=== PATIENT | female | born 1945 | race Caucasian/White ===

== ENCOUNTER 2020-04-23 09:32 | Emergency (ER) | payer OTHER, MEDICAID ==
[~2020-04-23] VITALS: Ht 154.9 cm; Wt 70.3 kg
[2020-04-23 09:40] VITALS: BP_SYST 162
--- NOTE | 2020-04-23 09:40 | NUR ---
Patient to ER bed 7 to gown for evaluation. Side rails up.
--- NOTE | 2020-04-23 09:42 | NUR ---
Pt came to ER for L eye redness and pain that began yesterday. Pt states she has L head numbness as well, resting in gurney, BP elevated 162/107, no other complaints at this tme.
[2020-04-23] MEDS ORDERED: cloNIDine HCL 0.1 MG TABLET PO ONE (09:45)
--- NOTE | 2020-04-23 09:45 | NUR ---
NANCY Navas at bedside examining patient.
--- NOTE | 2020-04-23 09:55 | NUR ---
Administered PO clonidine and visual acuity test at this time
[2020-04-23 10:28] VITALS: BP_SYST 143
--- NOTE | 2020-04-23 10:32 | NUR ---
Patient given written and verbal discharge instructions and verbalizes understanding. ER MD discussed with patient the results and treatment provided. Patient in stable condition. ID arm band removed. Rx of hydrochlorothiazide given. Patient educated on pain management and to follow up with PMD. Pain Scale 2. Opportunity for questions provided and answered. Medication side effect fact sheet provided.
--- NOTE | 2020-04-23 10:40 | NUR ---
Instructed patient to go to eye doctor for full exam, per
== END 2020-04-23 10:28 | disposition home or self-care (01) ==
LOC: SED 09:32
DX: H11.89 Other specified disorders of conjunctiva (principal); I10 Essential (primary) hypertension; E78.00 Pure hypercholesterolemia, unspecified; Z88.6 Allergy status to analgesic agent
CPT/HCPCS: 70450-TC; 99284

== ENCOUNTER 2020-05-22 06:00 | Day surgery (SDC) | payer OTHER, MEDICAID, SELFPAY ==
[~2020-05-22] VITALS: Ht 154.9 cm; Wt 73.5 kg
[2020-05-22] MEDS ORDERED: ONDANSETRON HCL 4 MG/2 ML VIAL IVP PRN ×2 (08:30→08:45)
[2020-05-22] MEDS ORDERED: HYDROmorphone 1 MG INJ. 1 MG/ML AMPUL IVP PRN (08:30)
[2020-05-22] MEDS ORDERED: hydrALAZINE HCL 20 MG/ML VIAL IVP PRN (08:30)
[2020-05-22] MEDS ORDERED: HYDROcodone/ACETAMIN 5-325 MG TAB (NORCO/ VICODIN) PO PRN (08:45)
[2020-05-22] MEDS ORDERED: OXYCODONE/ACETAMINOPHEN 5-325 TABLET PO PRN ×2 (08:45)
[2020-05-22 09:35] VITALS: BP_SYST 164
== END 2020-05-22 10:30 | disposition home or self-care (01) ==
LOC: SMU 06:00 → SDS 06:00
PROVIDERS: ATTEND Specialist
DX: N95.0 Postmenopausal bleeding (principal); D25.9 Leiomyoma of uterus, unspecified; I10 Essential (primary) hypertension; E66.9 Obesity, unspecified; K21.9 Gastro-esophageal reflux disease without esophagitis; J44.9 Chronic obstructive pulmonary disease, unspecified; I25.2 Old myocardial infarction; K58.9 Irritable bowel syndrome, unspecified; R93.89 Abnormal findings on diagnostic imaging of other specified body structures; E78.00 Pure hypercholesterolemia, unspecified; Z11.59 Encounter for screening for other viral diseases
CPT/HCPCS: 58558; 88305; J7120; U0003

== ENCOUNTER 2023-07-11 15:10 | Emergency (ER) | payer OTHER, MEDICAID ==
[~2023-07-11] VITALS: Ht 154.9 cm; Wt 72.6 kg
[2023-07-11 15:15] VITALS: BP_SYST 137; PULSE 76; RESP 18; TEMP 97.6; O2SAT 97
[2023-07-11] MEDS ORDERED: MORPHINE 4 MG INJ. 4 MG/ML VIAL IM ONE (15:30)
[2023-07-11 16:09] LABS: BASOPHILS % (AUTO) 0.3 % (0.0-2.0); EOSINOPHILS % (AUTO) 0.4 % (0.0-4.0); HEMATOCRIT 43.3 % (36-48); HEMOGLOBIN 14.2 g/dL (12.0-16.0); LYMPHOCYTES # (AUTO) 0.5 K/uL (1.0-5.5); LYMPHOCYTES % (AUTO) 6.5 % (20.5-51.5); MEAN CORPUSCULAR HEMOGLOBIN 30 pg (27-31); MEAN CORPUSCULAR HGB CONC 33 % (32-36); MEAN CORPUSCULAR VOLUME 92 fL (79.0-98.0); MONOCYTES # (AUTO) 0.3 K/uL (0.0-1.0); NEUTROPHILS # (AUTO) 6.5 K/uL (1.8-7.7); NEUTROPHILS % (AUTO) 88.8 % (40.0-70.0); PLATELET COUNT (AUTO) 155 K/uL (130-430); RED CELL DISTRIBUTION WIDTH 14.2 % (9.0-15.0); WHITE BLOOD COUNT (AUTO) 7.3 K/uL (4.8-10.8)
[2023-07-11 16:18] LABS: ACETONE, SERUM NEGATIVE (NEGATIVE)
[2023-07-11 16:19] LABS: INR 1.7 (0.8-1.2); PROTHROMBIN TIME 17.4 SECS (9.5-12.5)
[2023-07-11 16:22] LABS: ANION GAP 9 (5-15); CALCIUM 8.7 mg/dL (8.4-11.0); CARBON DIOXIDE 27 mmol/L (23-29); CHLORIDE 100 mmol/L (98-107); CREATININE 0.84 mg/dL (0.55-1.30); GLUCOSE 166 mg/dL (74-106); SODIUM SERUM 136 mmol/L (136-145); UREA NITROGEN, BLOOD 14 mg/dL (8-21)
[2023-07-11 16:30] LABS: ALANINE AMINOTRANSFERASE 22 U/L (12-78); ALBUMIN 3.4 g/dL (3.4-4.8); AMYLASE 46 U/L (0-100); ASPARTATE AMINOTRANSFERASE 20 U/L (10-37); LIPASE 54 U/L (73-393); TOTAL BILIRUBIN 0.5 mg/dL (0.0-1.0); TOTAL PROTEIN, SERUM 6.7 g/dL (6.4-8.3)
[2023-07-11] MEDS ORDERED: HYDR-3927 PO (17:21)
[2023-07-11] MEDS ORDERED: IBUP-1969 PO (17:21)
[2023-07-11] MEDS ORDERED: HYDROcodone/ACETAMIN 5-325 MG TAB (NORCO/ VICODIN) PO ONE (17:30)
[2023-07-11] MEDS ORDERED: IBUPROFEN 600 MG TABLET PO ONE (17:30)
[2023-07-11] MEDS ORDERED: KETOROLAC TROMETHAMINE 15 MG VIAL IVP ONE (17:30)
[2023-07-11 17:58] LABS: BILIRUBIN,URINE NEGATIVE (NEGATIVE); BLOOD, URINE NEGATIVE (NEGATIVE); CLARITY/URINE CLEAR (CLEAR); COLOR,URINE YELLOW (YELLOW); GLUCOSE,URINE NEGATIVE (NEGATIVE); KETONES,URINE 1+ (NEGATIVE); LEUKOCYTE ESTERASE ,URINE TRACE (NEGATIVE); NITRITE, URINE NEGATIVE (NEGATIVE); PROTEIN URINE NEGATIVE (NEGATIVE); UROBILINOGEN,URINE 0.2 (0.2-1.0)
[2023-07-11 18:01] LABS: BACTERIA,URINE RARE /HPF (None Seen); MUCUS,URINE None Seen /LPF (None Seen); RBC,URINE 0-3 /HPF (0-3)
[2023-07-11 18:08] VITALS: BP_SYST 130; PULSE 60; RESP 16; TEMP 98.2; O2SAT 96
== END 2023-07-11 18:08 | disposition home or self-care (01) ==
LOC: SED 15:10
DX: R10.9 Unspecified abdominal pain (principal); R53.1 Weakness; M54.50 Low back pain, unspecified; Z88.6 Allergy status to analgesic agent; Z79.899 Other long term (current) drug therapy
CPT/HCPCS: 99285; 74176; 96374; 96375; 80053; 81000; 82009; 82150; 83690; 85025; 85610; 85730; 36415; 76376; 83605; 82397; J1885; J2270